=== PATIENT | female | born 1970 | race Two or more races ===

== ENCOUNTER 2018-07-10 07:31 | Outpatient (CLI) | payer OTHER ==
[~2018-07-10 07:31] MED LIST: LEVAQUIN750 MG PO; NIFEDIPINE XL30 MG PO; OMEPRAZOLE20 MG PO
== END 2018-07-10 07:39 | disposition home or self-care (01) ==
LOC: RX STUDY 07:31
DX: R13.14 Dysphagia, pharyngoesophageal phase (principal)

== ENCOUNTER 2019-10-20 18:38 | Emergency (ER) | payer OTHER ==
[~2019-10-20] VITALS: Ht 152.4 cm; Wt 63.5 kg
== END 2019-10-20 22:28 | disposition home or self-care (01) ==
LOC: ER 18:38
DX: R42 Dizziness and giddiness (principal)

== ENCOUNTER 2023-03-20 23:32 | Emergency (ER) | payer OTHER ==
[~2023-03-20] VITALS: Ht 152.4 cm; Wt 65.8 kg
[2023-03-21] MEDS ORDERED: FAMOTIDINE20 MG PO (00:02)
[2023-03-21] MEDS ORDERED: COZAAR50 MG PO (00:03)
[2023-03-21 03:30] LABS: URINE APPEARANCE Clear; URINE BILIRRUBIN Negative (NEGATIVE); URINE BLOOD Negative; URINE COLOR Yellow; URINE GLUCOSE Negative (NEGATIVE); URINE LEUKOCYTE Negative; URINE NITRATE Negative; URINE PROTEIN Negative (NEGATIVE); URINE UROBILINOGEN 0.2 E.U./dl
[2023-03-21 03:34] LABS: URINE BACTERIA 188.7 uL (0.0-1933); URINE EPITHELIAL CELLS 4.4 uL (0.0-38.8); URINE RBC 2.4 uL (0.0-20.8)
[2023-03-21 03:52] LABS: HEMATOCRIT 38.2 % (36.0-45.00); HEMOGLOBIN 12.7 g/dL (12.0-15.00); MEAN CELL VOLUME 82.6 fL (80.00-100.00); MEAN CORPUSCULAR HEMOGLOBIN 27.5 pg (27.00-32.0); MEAN CORPUSCULAR HGB CONC 33.3 g/dl (32.0-36.0); RED BLOOD COUNT 4.63 M/uL (4.00-6.00); RED CELL DISTRIBUTION WIDTH 16.3 % (11.5-14.5)
[2023-03-21 04:09] LABS: URINE WBC 0.9 uL (0.0-23.2)
[2023-03-21 04:51] LABS: PLATELET COUNT 240 K/uL (150-450)
[2023-03-21 06:03] LABS: ALBUMIN 3.6 gm/dL (3.4-5.0); BILIRUBIN TOTAL 0.44 mg/dL (0.3-1.2); CALCIUM 9.1 mg/dL (8.5-10.1); CREATININE SERUM 0.68 mg/dL (0.55-1.02); GFR 91.59; GLOBULINA 3.9 G/DL (2.4-3.5); TOTAL PROTEIN 7.5 gm/dL (6.4-8.2)
[2023-03-21 06:04] LABS: POTASSIUM 4.39 mEq/L (3.5-5.1)
== END 2023-03-21 08:23 ==
LOC: EMR PED 23:32 → ER 23:32
PROVIDERS: General Practice
DX: R07.9 Chest pain, unspecified (principal); I10 Essential (primary) hypertension; Z88.2 Allergy status to sulfonamides; Z88.0 Allergy status to penicillin; Z88.8 Allergy status to other drugs, medicaments and biological substances